=== PATIENT | female | born 1975 | race Caucasian/White ===

== ENCOUNTER 2017-09-02 18:09 | Emergency (ER) | payer MEDICAID ==
[~2017-09-02] VITALS: Ht 162.6 cm; Wt 79.4 kg
[2017-09-02 18:23] VITALS: BP 125/72
--- NOTE | 2017-09-02 18:25 | NUR ---
PT AMBULATES TO BED 6
--- NOTE | 2017-09-02 18:32 | NUR ---
42 yo f bib self w/ c/o intermittent dry cough/sob x 2 days, denies chest pain. resp even and unlabored, in nad. Speaking in full clr sentences. skin is dry and wnl to the touch. a&o x 4. gcs 15. cms intact. denies n/v/d/fever/chills/sob. er md bradley notified. safety precautions in place. pt needs met. will continue to monitor.
[2017-09-02] MEDS ORDERED: IPRATROPIUM 0.02% 0.5 MG/2.5 ML NEBU INH ONE (18:35)
[2017-09-02] MEDS ORDERED: ALBUTEROL 0.083% 2.5 MG/3 ML NEBU INH ONE (18:35)
[2017-09-02 19:10] VITALS: BP 125/72
--- NOTE | 2017-09-02 19:12 | NUR ---
Patient discharged with v/s stable. Written and verbal after care instructions given and explained. Patient alert, oriented and verbalized understanding of instructions. Ambulatory with steady gait. All questions addressed prior to discharge. ID band removed. Patient advised to follow up with PMD. Rx of Albuterol, Prednisone, Tessalon Perles given. Patient educated on indication of medication including possible reaction and side effects. Opportunity to ask questions provided and answered.
== END 2017-09-02 19:12 | disposition home or self-care (01) ==
LOC: MED 18:09
DX: J40 Bronchitis, not specified as acute or chronic (principal); R51 Headache; M79.1 Myalgia; Z90.49 Acquired absence of other specified parts of digestive tract
CPT/HCPCS: 94640; 94760; 99283; J7613; J7644

== ENCOUNTER 2017-09-08 22:36 | Emergency (ER) | payer MEDICAID ==
[~2017-09-08] VITALS: Ht 165.1 cm; Wt 81.2 kg
[2017-09-08 22:40] VITALS: BP 118/67
[2017-09-08 23:07] LABS: BASOPHILS # (AUTO) 0.1 K/uL (0.00-0.22); BASOPHILS % (AUTO) 0.5 % (0.0-2.0); EOSINOPHILS # (AUTO) 1.2 K/uL (0-0.4); EOSINOPHILS % (AUTO) 10.1 % (0.0-4.0); HEMATOCRIT 38.8 % (36-48); HEMOGLOBIN 12.7 g/dL (12.0-16.0); LYMPHOCYTES # (AUTO) 4.6 K/uL (2.5-16.5); LYMPHOCYTES % (AUTO) 40.4 % (20.5-51.1); MEAN CORPUSCULAR HEMOGLOBIN 27 pg (27-31); MEAN CORPUSCULAR HGB CONC 33 g/dL (33-37); MEAN CORPUSCULAR VOLUME 81.3 fL (80-94); MONOCYTES # (AUTO) 0.7 K/uL (0.8-1.0); MONOCYTES % (AUTO) 6.5 % (1.7-9.3); NEUTROPHILS # (AUTO) 4.9 K/uL (1.8-7.7); NEUTROPHILS % (AUTO) 42.5 % (42.2-75.2); PLATELET COUNT (AUTO) 407 K/uL (140-450); RED BLOOD CELL COUNT(AUTO) 4.78 MIL/uL (4.20-5.40); RED CELL DISTRIBUTION WIDTH 14.4 % (11.6-13.7); WHITE BLOOD COUNT (AUTO) 11.5 K/uL (4.8-10.8)
[2017-09-08 23:18] LABS: ANION GAP 11.7 (8-16); CARBON DIOXIDE 29.2 mmol/L (21-32); CREATININE 0.7 mg/dL (0.6-1.3); POTASSIUM 3.9 mmol/L (3.5-5.1)
[2017-09-08 23:19] LABS: APPEARANCE,URINE SL CLOUDY (CLEAR); BILIRUBIN,URINE NEGATIVE (NEGATIVE); BLOOD, URINE TRACE-I (NEGATIVE); COLOR,URINE YELLOW (YELLOW); LEUKOCYTE ESTERASE ,URINE NEGATIVE (NEGATIVE); NITRITE, URINE NEGATIVE (NEGATIVE); UGLUCOSE NEGATIVE (NEGATIVE)
[2017-09-08 23:24] LABS: ALBUMIN 3.7 g/dL (3.4-5.0); TOTAL BILIRUBIN 0.1 mg/dL (0.0-1.0)
[2017-09-08 23:37] LABS: RBC,URINE 0-5 (RARE) /HPF (0-5); WBC,URINE 0-5 (RARE) /HPF (0-5)
[2017-09-08] MEDS ORDERED: PHENAZOPYRIDINE 100 MG TAB PO ONE (23:50)
[2017-09-08] MEDS ORDERED: KETOROLAC 30 MG/ML VIAL IM ONE (23:50)
[2017-09-09 01:37] VITALS: BP 121/70
== END 2017-09-09 01:15 | disposition home or self-care (01) ==
LOC: MED 22:36
DX: R10.30 Lower abdominal pain, unspecified (principal)
CPT/HCPCS: 36415; 74176; 80053; 81001; 81025; 85025; 96372; 99285; J1885

== ENCOUNTER 2018-08-17 21:20 | Emergency (ER) | payer SELFPAY ==
[~2018-08-17] VITALS: Ht 157.5 cm; Wt 78.0 kg
[2018-08-17 22:07] VITALS: BP 133/86
--- NOTE | 2018-08-17 22:07 | NUR ---
PT TAKEN TO BED 6, TRIAGED AT BEDSIDE.
--- NOTE | 2018-08-17 22:15 | NUR ---
43/F PRESENTS TO ED, C/O 09/07 CONSTANT PRESSURE-LIKE SUPRAPUBIC PAIN, RADIATING DIFFUSELY AROUND ABD AND LOWER BACK, X3 WEEKS. PT REPORTS URINARY FREQUENCY. PT DENIES FEVER/CHILLS, N/V/D, CONSTIPATION OR DYSURIA. PT AOX4, SKIN NORMAL WARM AND DRY, RR EVEN AND UNLABORED. BS ACTIVE X4, ABD SOFT ROUND MILDLY TENDER. HX PRE-DM, RX ANTI-GAS MEDICATION WITHOUT RELIEF
[2018-08-17 23:20] VITALS: BP 118/42
--- NOTE | 2018-08-17 23:20 | NUR ---
Patient discharged with v/s stable. Written and verbal after care instructions given and explained. Patient alert, oriented and verbalized understanding of instructions. Ambulatory with steady gait. All questions addressed prior to discharge. ID band removed. Patient advised to follow up with PMD. Rx of LACTULOSE, MINERAL OIL given. Patient educated on indication of medication including possible reaction and side effects. Opportunity to ask questions provided and answered.
== END 2018-08-17 23:20 | disposition home or self-care (01) ==
LOC: MED 21:20
DX: K59.00 Constipation, unspecified (principal)
CPT/HCPCS: 74022; 81002; 81025; 99283